=== PATIENT | female | born 1965 | race Caucasian/White ===

== ENCOUNTER 2016-09-20 11:13 | Emergency (ER) | payer OTHER ==
[~2016-09-20] VITALS: Ht 152.4 cm; Wt 56.5 kg
[2016-09-20 11:16] VITALS: BP 169/99; PULSE 89; RESP 16; TEMP 97.9; O2SAT 100
--- NOTE | 2016-09-20 11:20 | PD ---
HPI . Right anterior leg spider bite/infection for 3 days Chief Complaint: Bite or Sting Time Seen by Provider: 11:20 Travel History International Travel<30 days: No Contact w/Intl Traveler<30days: No Traveled to known affect area: No History of Present Illness HPI 50-year-old female with history of hypertension here with complaints of right anterior leg spider bite that has been there for about 3 days. Patient says she did not actually see the spider, but she has been bitten previously by spiders and had similar issues. She is now complaining of a right anterior leg wound that has been present for the past 3-4 days. Patient tells me that she's been taking someone else's Bactrim and it does not seem to be working. She says that the area popped and has been draining on its own. She's been using toilet paper as dressings. She denies any fever or chills. She is homeless. PFSH Past Medical History Hypertension: Yes ?: Not Social History Alcohol Use: No Tobacco Use: No Substance Use: No Allergies-Medications (Allergen,Severity, Reaction): Coded Allergies: No Known Allergies (Unverified , 09/20/16) Reported Meds & Prescriptions Reported Meds & Active Scripts Active Ibuprofen 800 Mg Tab 800 Mg PO TID Clindamycin (Clindamycin HCl) 300 Mg Cap 300 Mg PO TID Review of Systems General / Constitutional: No: Fever Eyes: No: Visual changes HENT: No: Headaches Cardiovascular: No: Chest Pain or Discomfort Respiratory: No: Shortness of Breath Gastrointestinal: No: Abdominal Pain Genitourinary: No: Dysuria Musculoskeletal: No: Pain Skin: Positive Other (anterior leg wound), No Rash Neurologic: No: Weakness Psychiatric: No: Depression Endocrine: No: Polydipsia Hematologic/Lymphatic: No: Easy Bruising Physical Exam Narrative GENERAL: AAO x 3, no acute distress, Well-nourished, well-developed patient. SKIN: Warm and dry. No visible rashes or bruising. distal anterior leg with open wound, no drainage present, + erythema and edema, warm to touch, area marked during examination HEAD: Normocephalic and atraumatic. EYES: No scleral icterus. No injection or drainage. ENT: No nasal drainage noted. Mucous membranes pink. Airway patent. NECK: Supple, trachea midline. No JVD. CARDIOVASCULAR: Regular rate and rhythm without murmurs, gallops, or rubs. RESPIRATORY: Breath sounds equal bilaterally. No accessory muscle use. No rhonchi or rales. GASTROINTESTINAL: visual inspection normal EXTREMITIES: No cyanosis> + 2+ edema of the distal right leg and foot. see skin : pedal pulses intact. all digits of the feet move normally, patient is ambulatory BACK: Nontender without obvious deformity. No CVA tenderness. PSYCH: AAO x 3, normal affect. Data Data Last Documented VS Vital Signs Date Time Temp Pulse Resp B/P Pulse Ox O2 Delivery O2 Flow Rate FiO2 09/20/16 11:16 97.9 89 16 169/99 100 Orders Wound Culture And Gram Stain (09/20/16 11:24) Wound Care (09/20/16 11:24) Clindamycin (Cleocin) (09/20/16 11:30) MDM Medical Decision Making Medical Screen Exam Complete: Yes Emergency Medical Condition: Yes Medical Record Reviewed: Yes Differential Diagnosis cellulitis, spider bite, less likely fracture, Narrative Course 50-year-old female with history of hypertension here with complaints of right anterior leg spider bite that has been there for about 3 days. Patient says she did not actually see the spider, but she has been bitten previously by spiders and had similar issues. She is now complaining of a right anterior leg wound that has been present for the past 3-4 days. Patient tells me that she's been taking someone else's Bactrim and it does not seem to be working. She says that the area popped and has been draining on its own. She's been using toilet paper as dressings. She denies any fever or chills. She is homeless. Patient seen and examined. She does have a cellulitis to her right distal leg. It is causing some pedal edema, but pulses are intact and it is very localized and superficial. We have taken a wound culture. Area was cleaned and sterile dressing applied. I have provided a dose of clindamycin in the ED. She has been instructed to start meds soon. Return in 2 days for a wound check. Discussed signs of worsening infection and when to return to ED earlier. Patient verbalized understanding of instructions, questions were answered, and thanked me for their care. I advised them if their condition worsens, please return to the nearest emergency room for further care. Diagnosis Primary Impression: Cellulitis Qualified Code: L03.115 - Cellulitis of right lower extremity Patient Instructions: Acute Wound Care (ED), Cellulitis (ED), General Instructions Additional Instructions: Please wash with soap and water daily. Change dressings daily. Take antibiotics as prescribed. Return to the emergency room in 2 days for a recheck. [place] for worsening signs of infection which include fever, increased redness , increased warmth, purulent drainage, increased swelling or streaking. If any of these develop, please go to the nearest emergency room. Scripts Ibuprofen 800 Mg [id number] Mg PO TID #21 TAB Prov:Marsha Kilgore DO 09/20/16 Clindamycin 300 Mg [id number] Mg PO TID #21 CAP Prov:Marsha Kilgore DO 09/20/16 Disposition: 01 DISCHARGE HOME Condition: Stable Lian Sylvester September 20, 2016 11:20
[2016-09-20] MEDS ORDERED: IBUP800T23 PO (11:27)
[2016-09-20] MEDS ORDERED: CLIN1CAP6 PO (11:27)
[2016-09-20] MEDS ORDERED: CLINDAMYCIN 150 MG CAP PO ONE (11:30)
== END 2016-09-20 11:48 | disposition home or self-care (01) ==
LOC: NEPK 11:13
DX: L03.115 Cellulitis of right lower limb (principal); I10 Essential (primary) hypertension; B95.1 Streptococcus, group B, as the cause of diseases classified elsewhere; B95.62 Methicillin resistant Staphylococcus aureus infection as the cause of diseases classified elsewhere; Z59.0 Homelessness; X58.XXXA Exposure to other specified factors, initial encounter
CPT/HCPCS: 86403; 87070; 87186; 99283

== ENCOUNTER 2018-02-13 09:43 | Inpatient (IN) ==
[2018-02-13] MEDS ORDERED: Acetaminophen 325 MG Tablet PO ONE (10:17)
[2018-02-13] MEDS ORDERED: Tetanus/Diphtheria Toxoid Adult Vaccine Inj 0.5 ML Vial IM ONE (10:25)
--- NOTE | 2018-02-13 10:25 | ED ---
HPI General Chief complaint: Skin/Abscess/Foreign Body Stated complaint: left hand pain Time Seen by Provider: 02/13/18 10:10 Source: patient Limitations: no limitations History of Present Illness HPI narrative: Pt here today for 2 days hx of L hand cellulitis with multiple circular wounds x 2 days s/p "[place]". dorsal surface of L hand with cellulitis and open oozing wound to base of L index and L middle finger. Also has circular wound to palmar surface of L pinky finger with cellulitis that is tracking up to antecubital region. There is another approx 1 cm circular lesion to base of RIGHT pinky finger as well that is approx 1 cm circular with some serous oozing. One more lesion to lateral aspect of L foot that is approx .5 cm circular. Denies IV drug use. (+) hx low plateltes, hepatitis c, and anemia. Tetanus is out of date. MD complaint: abscess/boil and lesion Onset (ago): day(s) Tetanus Immunization: >5 Years Location: L hand Severity: moderate Severity scale (1-10): 5 Related Data Home Medications Medication Instructions Recorded Confirmed duloxetine [Cymbalta] 60 mg PO DAILY 02/14/18 02/14/18 ferrous sulfate 325 mg PO BID 02/14/18 02/14/18 folic acid 1 mg PO DAILY 02/14/18 02/14/18 gabapentin [Neurontin] 300 mg PO BID 02/14/18 02/14/18 lisinopril 10 mg PO DAILY 02/14/18 02/14/18 omeprazole magnesium [Prilosec] 20 mg PO DAILY 02/14/18 02/14/18 pantoprazole [Protonix] 40 mg PO DAILY 02/14/18 02/14/18 trazodone 100 mg PO HS 02/14/18 02/14/18 Allergies Allergy/AdvReac Type Severity Reaction Status Date / Time *MDRO Multi-Drug Resistant AdvReac Unknown Uncoded 09/23/16 10:26 Organism Review of Systems ROS: all other systems reviewed are negative [facility] Medical History Medical History Alcohol abuse (Acute) Anemia (Acute) Bipolar 1 disorder (Acute) GERD (gastroesophageal reflux disease) (Acute) HTN (hypertension) (Acute) Hernia (Acute) IBS (irritable bowel syndrome) (Acute) Family History Family History Other Family history non-contributory Social History Social History Substance History: Past History 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 SKIN: Warm and dry. Area of swelling to base of L index and middle fingers that is hot to touch-cellulitis. Approximately 3-4 cm circular area of dorsal surface of L hand. Also palmar surface of L pinky with circular open wound. Areas are purplish in color with some whitish skin small open puncture-like areas to centers of lesions that are oozing serous fluid. Also palmar surface of L pinky that is tracking up to L antecubital region. One lesion to LEFT lateral foot similar description as above. HEAD: Normocephalic. ENT: No scleral icterus. No injection or drainage. NECK: Supple, trachea midline. No JVD or lymphadenopathy. CARDIOVASCULAR: Regular rate and rhythm without murmurs, gallops, or rubs. RESPIRATORY: Breath sounds equal bilaterally. No accessory muscle use. GASTROINTESTINAL: Abdomen soft, non-tender, nondistended. MUSCULOSKELETAL: No cyanosis, or edema. Pt able to open hand but too painful to completely open it. Strong handicapper harness racing, shei s able to make a fist without any difficulty. BACK: Nontender without obvious deformity. No CVA tenderness. Course Initial Documented Vital Signs Temperature 98.5 F 02/13/18 10:00 Pulse Rate 82 02/13/18 10:00 Respiratory Rate 19 02/13/18 10:00 Blood Pressure 148/86 H 02/13/18 10:00 Pulse Oximetry 99 02/13/18 10:00 Last Documented Vital Signs Temperature 97.6 F 02/14/18 15:40 Pulse Rate 74 02/14/18 15:40 Respiratory Rate 18 02/14/18 15:40 Blood Pressure 147/90 H 02/14/18 15:40 Pulse Oximetry 97 02/14/18 15:40 Medical Decision Making BETH Attestation BETH supervised visit: Yes Attestation: I, Dr. Kilgore, have reviewed the advance practice practitioner's documentation and am in agreement, met with the patient face to face, made the diagnosis, and the medical decision making was done by me. *My assessment and Findings: cellulitis vs. pustules vs. sepsis 52yo F with alcohol abuse here with c/o redness and pain in left hand for 2 days. Said she [place]. Said there was a lot of barnacles. +pustules that is draining purulent discharge on expression on dorsum of left hand. +Erythema and edema dorsum of 2nd and 3rd digit with streaking erythema up left forearm. Unable to fully extend 2nd and 3rd digit. There is another lesion on volar aspect of distal wrist with erythematous streaking up her forearm. Compartment is soft. Labs reviewed, leukocytosis at 13.3. H/H normal. Thrombocytopenia at 127,000 which pt said she has had. Lactic acid elevated at 3.0. Mild hyponatremia at 133. Mildly elevated liver enzymes likely secondary to alcohol abuse. Pt said she had fever today. Since the infection is rapidly progressing and pt has elevated leukocyte and lactic acid, will admit for IV antibiotics. Wound cultures were sent. Pt given vancomycin and doxycylcine to cover Vibrio species. MDM Narrative Medical decision making narrative: Painful, swollen wound to dorsal surface of L hand-see Exam section for description. She is able to open her hand but not all the way, she has ability to make a fist on L hand as well. Lesions to lateral aspect of L foot and R palmar pinky area. She denies Iv drug use, but I suspect otherwise. Labwork ordered with lactic acid and blood cultures, will give Tylenol for pain, wound culture ordered. L hand XR ordered as well. Medical Screen Exam Complete: Yes Emergency Medical Condition: Yes Differential Diagnosis Differential Diagnosis: Cellulitis, IV drug use/abscess Lab Data Result diagrams: 02/14/18 08:20 02/14/18 08:20 Lab Results 02/13/18 02/13/18 02/13/18 Range/Units 10:50 10:50 10:55 WBC 13.3 H (4.0-11.0) th/mm3 RBC 4.67 (4.00-5.30) mil/mm3 Hgb 14.0 (11.6-15.3) gm/dL Hct 41.3 (35.0-46.0) % MCV 88.4 (80.0-100.0) fL MCH 30.0 (27.0-34.0) pg MCHC 34.0 (32.0-36.0) % RDW 14.4 (11.6-17.2) % Plt Count 127 L (150-450) th/mm3 MPV 7.9 (7.0-11.0) fL Neut % (Auto) 89.7 H (16.0-70.0) % Lymph % (Auto) 5.6 L (9.0-44.0) % [place] % (Auto) 4.3 (0.0-8.0) % Eos % (Auto) 0.1 (0.0-4.0) % Baso % (Auto) 0.3 (0.0-2.0) % Neut # (Auto) 11.9 H (1.8-7.7) th/mm3 Lymph # (Auto) 0.7 L (1.0-4.8) th/mm3 [place] # (Auto) 0.6 (0.0-0.9) th/mm3 Eos # (Auto) 0.0 (0.0-0.4) th/mm3 Baso # (Auto) 0.0 (0.0-0.2) th/mm3 WBC Differential . Differential Comment Auto diff final Sodium 133 L (136-145) meq/L Potassium 4.0 (3.5-5.1) meq/L Chloride 97 L (98-107) meq/L Carbon Dioxide 19.7 L (21.0-32.0) meq/L Anion Gap 16 H (5-15) meq/L BUN 9 (7-18) mg/dL Creatinine 0.83 (0.50-1.00) mg/dL Estimated GFR 73 L (>89) mL/min Random Glucose 73 L (74-106) mg/dL Lactic Acid 3.0 H (0.4-2.0) mmol/L Calcium 9.6 (8.5-10.1) mg/dL Total Bilirubin 1.2 H (0.2-1.0) mg/dL AST 65 H (15-37) U/L ALT 65 H (10-53) U/L Alkaline Phosphatase 143 H (45-117) U/L Total Protein 9.5 H (6.4-8.2) g/dL Albumin 4.5 (3.4-5.0) g/dL 02/14/18 02/14/18 Range/Units 08:20 08:20 WBC 6.2 D (4.0-11.0) th/mm3 RBC 4.11 (4.00-5.30) mil/mm3 Hgb 12.2 (11.6-15.3) gm/dL Hct 36.7 (35.0-46.0) % MCV 89.1 (80.0-100.0) fL MCH 29.7 (27.0-34.0) pg MCHC 33.3 (32.0-36.0) % RDW 14.4 (11.6-17.2) % Plt Count 89 L (150-450) th/mm3 MPV 8.7 (7.0-11.0) fL Neut % (Auto) (16.0-70.0) % Lymph % (Auto) (9.0-44.0) % [place] % (Auto) (0.0-8.0) % Eos % (Auto) (0.0-4.0) % Baso % (Auto) (0.0-2.0) % Neut # (Auto) (1.8-7.7) th/mm3 Lymph # (Auto) (1.0-4.8) th/mm3 [place] # (Auto) (0.0-0.9) th/mm3 Eos # (Auto) (0.0-0.4) th/mm3 Baso # (Auto) (0.0-0.2) th/mm3 WBC Differential Differential Comment Sodium 137 (136-145) meq/L Potassium 3.6 (3.5-5.1) meq/L Chloride 104 (98-107) meq/L Carbon Dioxide 22.5 (21.0-32.0) meq/L Anion Gap 11 (5-15) meq/L BUN 6 L (7-18) mg/dL Creatinine 0.63 (0.50-1.00) mg/dL Estimated GFR Greater than 89 (>89) mL/min Random Glucose 118 H (74-106) mg/dL Lactic Acid (0.4-2.0) mmol/L Calcium 8.5 D (8.5-10.1) mg/dL Total Bilirubin (0.2-1.0) mg/dL AST (15-37) U/L ALT (10-53) U/L Alkaline Phosphatase (45-117) U/L Total Protein (6.4-8.2) g/dL Albumin (3.4-5.0) g/dL Imaging Data Radiologist's impression: Hand X-Ray 02/13/18 10:35 CONCLUSION: Mild degenerative changes, negative for fracture Generalized soft tissue swelling Discharge Plan Discharge Disposition Patient Disposition: 30 Still Patient Discharge Details Diagnosis: Cellulitis Physicians Team ED Provider: Marsha Kilgore ED Midlevel Provider: Agata Patrick Primary Care Provider: Primary Care Kaela Castro Attending Provider: Champ Freeman Status ED Status: Left Department Discharge Information Discharge Date/Time: 02/13/18 13:30
[2018-02-13 11:10] LABS: Baso % (Auto) 0.3 % (0.0-2.0); Eos % (Auto) 0.1 % (0.0-4.0); Hematocrit 41.3 % (35.0-46.0); Lymph # (Auto) 0.7 th/mm3 (1.0-4.8); Lymph % (Auto) 5.6 % (9.0-44.0); Mean Corpuscular Volume 88.4 fL (80.0-100.0); Mean Platelet Volume 7.9 fL (7.0-11.0); Mono # (Auto) 0.6 th/mm3 (0.0-0.9); Mono % (Auto) 4.3 % (0.0-8.0); Neut # (Auto) 11.9 th/mm3 (1.8-7.7); Neut % (Auto) 89.7 % (16.0-70.0); Platelet Count 127 th/mm3 (150-450); Red Blood Count 4.67 mil/mm3 (4.00-5.30); Red Cell Distribution Width 14.4 % (11.6-17.2); White Blood Count 13.3 th/mm3 (4.0-11.0)
[2018-02-13] MEDS: Sod Chloride 0.9% Inj 1,000 ML IV.CONT SCH ×4 (11:10→22:49)
[2018-02-13 11:26] LABS: Albumin 4.5 g/dL (3.4-5.0); Anion Gap 16 meq/L (5-15); Aspartate Aminotransferase 65 U/L (15-37); Blood Urea Nitrogen 9 mg/dL (7-18); Calcium 9.6 mg/dL (8.5-10.1); Carbon Dioxide 19.7 meq/L (21.0-32.0); Chloride 97 meq/L (98-107); Glomerular Filtration Rate 73 mL/min (>89); Glucose,Random 73 mg/dL (74-106); Sodium 133 meq/L (136-145)
[2018-02-13 11:30] LABS: Alanine Aminotransferase 65 U/L (10-53); Alkaline Phosphatase 143 U/L (45-117); Total Protein 9.5 g/dL (6.4-8.2)
--- NOTE | 2018-02-13 11:45 | XR ---
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 Patient reports that signs and symptoms have been present for 2 days and indicates a pain score of 10/10. MEDICAL/SURGICAL HISTORY: Anemia. ETOH abuse None. COMPARISON: No prior exams available for comparison. FINDINGS: Bony structures are intact and in normal alignment. Minimal degenerative changes base of the first me tacarpal. Osseous density is normal. Generalized soft tissue swelling. No radiopaque foreign bodies seen. CONCLUSION: Mild degenerative changes, negative for fracture Generalized soft tissue swelling Electronically signed by: Abdon Meade MD 02/13/2018 11:43 AM EDT
[2018-02-13] MEDS ORDERED: Sod Chloride 0.9% Inj 1,000 ML IV.SIG SCH (12:00)
[2018-02-13] MEDS ORDERED: Vancomycin Inj 1 GM/200 ML PIGGYBACK IV.SIG SCH (12:00)
[2018-02-13] MEDS ORDERED: Bisacodyl 10 MG Supp RECTAL PRN (12:39)
[2018-02-13] MEDS: Sodium Chlor 0.9% Inj 100 ML IV.SIG SCH ×2 (13:00→15:54)
--- NOTE | 2018-02-13 13:14 | P.HPIM ---
History of Present Illness Service: [facility] hospitalist Primary Care Physician: No Primary Care Physician Chief Complaint: Left hand infection History of Present Illness: 52-year-old female with a medical history significant for hypertension, alcohol dependence, hepatitis C who went [place] for unknown reason about 2 days ago. The patient reports there was a lot of barnacles and that she was not aware she caught herself. She presented to the emergency room today with rapidly progressive pustules involving the left hand, left forearm, left heel. She reported subjective fevers. There is some swelling of the left hand but she is able to move her fingers freely. Review of Systems All other systems reviewed negative except as stated in HPI PMFSH - History History Provided By: Patient - Medical History Medical History: Medical History (Last Updated 02/13/18 @ 12:52 by Chepe William MD) Alcohol abuse Anemia Bipolar 1 disorder GERD (gastroesophageal reflux disease) HTN (hypertension) Hernia IBS (irritable bowel syndrome) - Surgical History Surgical History: Surgical History (Last Reviewed 02/13/18 @ 12:52 by Chepe William MD) Previous section - Family History Family History: Family History (Last Updated 02/13/18 @ 12:52 by Chepe William MD) Other Family history non-contributory - Social History I have reviewed the patient's Social History: Yes - Tobacco History Smoking Status: Never smoker - Alcohol History How Often Do You Have a Drink Containing Alcohol: 4 or more times a week - Substance Use History Substance History: No History of Abuse - Travel History Recent Travel Out of the Country Within the Last 8 Weeks: No - Immunization History Tetanus Immunization: >5 Years Medications and Allergies Active Medications: Active Medications Acetaminophen (Tylenol) 650 mg PO Q4H PRN PRN Reason: PAIN 1-10 AND/OR FEVER >101F Al Hydroxide/Mg Hydroxide (Milk Of Magnesia Liq) 30 ml PO Q12H PRN PRN Reason: Mild Constipation Bisacodyl (Dulcolax Supp) 10 mg RECTAL DAILY PRN PRN Reason: SEVERE CONSITIPATION Doxycycline Hyclate (Vibramycin) 100 mg PO Q12HR FLAQUITO Sodium Chloride (Ns Inj) 1,000 mls @ 125 mls/hr IV.CONT .Q8H [facility] Last Admin: 02/13/18 11:10 Dose: 125 mls/hr Sodium Chloride (Ns Inj) 1,000 mls @ 0 mls/hr IV.SIG BOLUS FLAQUITO Vancomycin/Sodium Chloride (Vancomycin Inj) 1 gm in 200 mls @ 200 mls/hr IV.SIG AGRICULTURE LABORATORY TECHNICIAN [facility] Clindamycin/Sodium Chloride (Cleocin 600 Mg/Ns Premix) 600 mg in 50 mls @ 100 mls/hr IV.SIG Q8H FLAQUITO Stop: 02/14/18 05:14 Lactulose (Lactulose Liq) 30 ml PO DAILY PRN PRN Reason: SEVERE CONSITIPATION Levofloxacin (Levaquin) 750 mg PO DAILY [facility] Sennosides (Senokot) 17.2 mg PO Q12H PRN PRN Reason: Moderate Constipation Sodium Chloride (Ns Flush) 2 ml IV.FLUSH PRN PRN PRN Reason: FLUSH AFTER USING IV ACCESS Allergies Allergy/AdvReac Type Severity Reaction Status Date / Time *MDRO Multi-Drug Resistant AdvReac Unknown Uncoded 09/23/16 10:26 Organism Home Medications Medication Instructions Recorded Confirmed Type No Known Home Medications 02/13/18 02/13/18 History Exam Vital signs: Vital Signs 02/13/18 10:00 Temperature 98.5 F Pulse Rate 82 Respiratory Rate 19 Blood Pressure 148/86 H Pulse Oximetry 99 Intake & Output 02/12/18 02/13/18 02/13/18 18:59 06:59 18:59 Weight 61.235 kg Narrative: GENERAL: This is a well-nourished, well-developed patient, in no apparent distress. SKIN: On the dorsal aspect of the left hand, there are a few areas of pustules, some of them draining serous fluid. There is another pustule on the left forearm with surrounding erythema and the lateral side of the left heel there is fresh laceration. CARDIOVASCULAR: Normal rate and regular rhythm without murmurs, gallops, or rubs. RESPIRATORY: Good respiratory efforts. Breath sounds equal and clear to auscultation bilaterally. GASTROINTESTINAL: Abdomen soft, non-tender, non-distended. Normal active bowel sounds MUSCULOSKELETAL: Extremities without cyanosis, or edema. NEURO: Alert & Oriented x4 to person, place, time, situation. Moves all ext x4 PSYCH: Appropriate mood and affect. Results - Labs CBC & Chem 7: 02/13/18 10:50 02/13/18 10:50 Labs: Short CBC 02/13/18 Range/Units 10:50 WBC 13.3 H (4.0-11.0) th/mm3 Hgb 14.0 (11.6-15.3) gm/dL Hct 41.3 (35.0-46.0) % Plt Count 127 L (150-450) th/mm3 BMP 02/13/18 10:50 Sodium 133 L Potassium 4.0 Chloride 97 L Carbon Dioxide 19.7 L BUN 9 Creatinine 0.83 Calcium 9.6 Liver Function 02/13/18 Range/Units 10:50 Total Bilirubin 1.2 H (0.2-1.0) mg/dL AST 65 H (15-37) U/L ALT 65 H (10-53) U/L Alkaline Phosphatase 143 H (45-117) U/L Albumin 4.5 (3.4-5.0) g/dL - Imaging Impressions Hand X-Ray 02/13/18 10:35 CONCLUSION: Mild degenerative changes, negative for fracture Generalized soft tissue swelling Caprini VTE Risk Assessment Caprini VTE Risk Assessment: No/Low Risk (score <= 1) Caprini Risk Assessment Model: Point Value = 1 Point Value = 2 Point Value = 3 Point Value = 5 Age 41-60 Minor surgery BMI > 25 kg/m2 Swollen legs Varicose veins or History of unexplained or recurrent spontaneous Oral contraceptives or hormone replacement Sepsis (< 1 month) Serious lung disease, including pneumonia (< 1 month) Abnormal pulmonary function Acute myocardial infarction Congestive heart failure (< 1 month) History of inflammatory bowel disease Medical patient at bed rest Age 61-74 Arthroscopic surgery Major open surgery (> 45 min) Laparoscopic surgery (> 45 min) Malignancy Confined to bed (> 72 hours) Immobilizing plaster cast Central venous access Age >= 75 History of VTE Family history of VTE Factor V Leiden Prothrombin [id number] Lupus anticoagulant Anticardiolipin antibodies Elevated serum homocysteine Heparin-induced thrombocytopenia Other congenital or acquired thrombophilia Stroke (< 1 month) Elective arthroplasty Hip, pelvis, or leg fracture Acute spinal cord injury (< 1 month) Prophylaxis Regimen: Total Risk Factor Score Risk Level Prophylaxis Regimen 0-1 Low Early ambulation 2 Moderate Order ONE of the following: *Sequential Compression Device (SCD) *Heparin 5000 units SQ BID 3-4 Higher Order ONE of the following medications: *Heparin 5000 units SQ TID *Enoxaparin/Lovenox 40 mg SQ daily (WT < 150 kg, CrCl > 30 mL/min) *Enoxaparin/Lovenox 30 mg SQ daily (WT < 150 kg, CrCl > 10-29 mL/min) *Enoxaparin/Lovenox 30 mg SQ BID (WT < 150 kg, CrCl > 30 mL/min) AND/OR *Sequential Compression Device (SCD) 5 or more Highest Order ONE of the following medications: *Heparin 5000 units SQ TID (Preferred with Epidurals) *Enoxaparin/Lovenox 40 mg SQ daily (WT < 150 kg, CrCl > 30 mL/min) *Enoxaparin/Lovenox 30 mg SQ daily (WT < 150 kg, CrCl > 10-29 mL/min) *Enoxaparin/Lovenox 30 mg SQ BID (WT < 150 kg, CrCl > 30 mL/min) AND *Sequential Compression Device (SCD) Assessment and Plan - Plan 52-year-old female with: Left hand/forearm cellulitis: Patient sustained presumable lacerations from swimming [place] couple of [place]. Seawater exposure. Rapidly progressing symptoms. -Antibiotics received in the emergency room include vancomycin, Rocephin, and doxycycline - We will continue antibiotics with Levaquin, clindamycin, and doxycycline in anticipation for transition to oral antibiotics hopefully by tomorrow. - Expect improvement, if worsening would consult ID. Serial exam of the hand. Infection appear to involve soft tissue only at this time. Hypertension: - Resume home dose lisinopril 20 mg daily Alcohol abuse: - Patient counseled on cessation. Hyponatremia/mild anion gap/lactic acidosis: - I expect this to be corrected quickly with IV hydration. -Follow-up labs in a.m. Elevated LFTs: - Secondary to continuous alcohol use. - Patient counseled on cessation GI prophylaxis: Stool softener PRN constipation. DVT PPx: Patient is ambulatory.
[2018-02-13] MEDS: Lisinopril 10 MG Tablet PO SCH (15:28)
[2018-02-13] MEDS: Acetaminophen 325 MG Tablet PO PRN ×2 (15:29→21:37)
[2018-02-13] MEDS: Clindamycin 600 mg/NS Premix 600 MG/50 ML PIGGYBACK IV.SIG SCH ×2 (15:55→22:49)
[2018-02-14] MEDS: Sod Chloride 0.9% Inj 1,000 ML IV.CONT SCH ×5 (02:27→21:30)
[2018-02-14] MEDS: Acetaminophen 325 MG Tablet PO PRN (05:59)
[2018-02-14] MEDS: Clindamycin 600 mg/NS Premix 600 MG/50 ML PIGGYBACK IV.SIG SCH (06:00)
[2018-02-14] MEDS ORDERED: levoFLOXacin 750 MG Tablet PO SCH (09:00)
[2018-02-14 09:06] LABS: Hematocrit 36.7 % (35.0-46.0); Hemoglobin 12.2 gm/dL (11.6-15.3); Mean Corpuscular HGB Conc 33.3 % (32.0-36.0); Mean Corpuscular Hemoglobin 29.7 pg (27.0-34.0); Mean Corpuscular Volume 89.1 fL (80.0-100.0); Mean Platelet Volume 8.7 fL (7.0-11.0); Platelet Count 89 th/mm3 (150-450); Red Blood Count 4.11 mil/mm3 (4.00-5.30); Red Cell Distribution Width 14.4 % (11.6-17.2); White Blood Count 6.2 th/mm3 (4.0-11.0)
[2018-02-14] MEDS: Lisinopril 10 MG Tablet PO SCH (09:42)
[2018-02-14] MEDS: Gabapentin 300 MG Capsule PO SCH ×2 (09:42→21:29)
[2018-02-14] MEDS: Duloxetine 60 MG DR Capsule PO SCH (09:42)
[2018-02-14 09:46] LABS: Anion Gap 11 meq/L (5-15); Blood Urea Nitrogen 6 mg/dL (7-18); Calcium 8.5 mg/dL (8.5-10.1); Carbon Dioxide 22.5 meq/L (21.0-32.0); Chloride 104 meq/L (98-107); Glomerular Filtration Rate Greater Than 89 mL/min (>89); Glucose,Random 118 mg/dL (74-106); Potassium 3.6 meq/L (3.5-5.1); Sodium 137 meq/L (136-145)
--- NOTE | 2018-02-14 10:17 | P.PN ---
Subjective Interval history: Follow-up for left hand/forearm and left cellulitis s/p injury from barnacles in [facility]. Patient reports mild improvement of her left hand swelling overnight, however still erythematous with purulent drainage from wounds. She is still unable to make a closed fist with the left hand. RN at bedside does report mild improvement compared to yesterday. Denies fevers/chills. She is reporting occasional nausea with an episode of vomiting today. Denies abdominal pain. She is requesting her home medications be restarted. Denies any other medical complaints at this time. Physical Exam Vital signs: Vital Signs 02/13/18 16:00 02/13/18 20:00 02/14/18 00:00 Temperature 98.3 F 98.1 F 98.2 F Pulse Rate 79 87 72 Respiratory Rate 12 16 16 Blood Pressure 132/84 140/91 H 114/70 Pulse Oximetry 100 98 100 02/14/18 04:00 02/14/18 07:15 Temperature 98.5 F 98.5 F Pulse Rate 71 72 Respiratory Rate 16 18 Blood Pressure 128/79 141/87 H Pulse Oximetry 99 98 Intake & Output 02/13/18 02/14/18 02/14/18 18:59 06:59 18:59 Intake Total 1250 / 1250 2100 / 2100 Balance 1250 / 1250 2100 / 2100 Weight 61.235 kg 61.235 kg Intake: IV 1250 / 1250 2100 / 2100 NS Inj 1,000 ML @ 125 mls/hr IV 1000 / 1000 2000 / 2000 .CONT .Q8H FLAQUITO Rx#:[id number] Cleocin 600 mg/NS Premix 600 mg 50 / 50 100 / 100 In 50 ml @ 100 mls/hr IV.SIG Q8H FLAQUITO Rx#:[id number] NS Inj 100 ML @ 75 mls/hr IV. 100 / 100 SIG ONCE FLAQUITO Rx#:[id number] Rocephin Inj 1,000 MG In NS Inj 100 / 100 100 ML @ 200 mls/hr IV.SIG ONCE ONE Rx#:[id number] Other: # Voids 2 Date of Last Bowel Movement 02/13/18 Weight On Admission 61.235 kg Narrative: GENERAL: Well-nourished, well-developed middle aged female patient in [facility]. SKIN: Warm and dry. Left dorsal hand with multiple pustules with mixture of serous and purulent drainage, diffuse edema throughout entire dorsal hand, few pustules on the forearm without drainage, and superficial laceration without drainage at left lateral heel with mild surrounding erythema. HEENT: Normocephalic. Atraumatic. Pupils equal and round. Mucous membranes pink and moist. NECK: Supple. Trachea midline. CARDIOVASCULAR: Regular rate and rhythm. No murmur appreciated. RESPIRATORY: No accessory muscle use. Clear to auscultation. Breath sounds equal bilaterally. GASTROINTESTINAL: Abdomen soft, non-tender, nondistended. Normoactive bowel sounds x4. MUSCULOSKELETAL: No obvious deformities. Extremities without clubbing, cyanosis , or edema. Unable to make closed fist with left hand due to diffuse edema. NEUROLOGICAL: Awake and alert. No obvious cranial nerve deficits. Motor grossly within normal limits. Moving all extremities spontaneously. Normal speech. PSYCHIATRIC: Appropriate mood and affect; insight and judgment normal. Results - Labs CBC & Chem 7: 02/14/18 08:20 02/14/18 08:20 Laboratory Results - last 24 hr 02/13/18 02/13/18 02/13/18 10:50 10:50 10:55 WBC 13.3 H RBC 4.67 Hgb 14.0 Hct 41.3 MCV 88.4 MCH 30.0 MCHC 34.0 RDW 14.4 Plt Count 127 L MPV 7.9 Neut % (Auto) 89.7 H Lymph % (Auto) 5.6 L [place] % (Auto) 4.3 Eos % (Auto) 0.1 Baso % (Auto) 0.3 Neut # (Auto) 11.9 H Lymph # (Auto) 0.7 L [place] # (Auto) 0.6 Eos # (Auto) 0.0 Baso # (Auto) 0.0 WBC Differential . Differential Comment Auto diff final Sodium 133 L Potassium 4.0 Chloride 97 L Carbon Dioxide 19.7 L Anion Gap 16 H BUN 9 Creatinine 0.83 Estimated GFR 73 L Random Glucose 73 L Lactic Acid 3.0 H Calcium 9.6 Total Bilirubin 1.2 H AST 65 H ALT 65 H Alkaline Phosphatase 143 H Total Protein 9.5 H Albumin 4.5 02/14/18 02/14/18 08:20 08:20 WBC 6.2 D RBC 4.11 Hgb 12.2 Hct 36.7 MCV 89.1 MCH 29.7 MCHC 33.3 RDW 14.4 Plt Count 89 L MPV 8.7 Neut % (Auto) Lymph % (Auto) [place] % (Auto) Eos % (Auto) Baso % (Auto) Neut # (Auto) Lymph # (Auto) [place] # (Auto) Eos # (Auto) Baso # (Auto) WBC Differential Differential Comment Sodium 137 Potassium 3.6 Chloride 104 Carbon Dioxide 22.5 Anion Gap 11 BUN 6 L Creatinine 0.63 Estimated GFR Greater than 89 Random Glucose 118 H Lactic Acid Calcium 8.5 D Total Bilirubin AST ALT Alkaline Phosphatase Total Protein Albumin Microbiology 02/13/18 10:50 Abscess - Hand Gram Stain - Final - Imaging Impressions Hand X-Ray 02/13/18 10:35 CONCLUSION: Mild degenerative changes, negative for fracture Generalized soft tissue swelling Assessment and Plan - Plan 52-year-old female with a medical history significant for hypertension, alcohol dependence, hepatitis C who went swimming in the [place] for unknown reason about 2 days ago. Left hand/forearm cellulitis: Patient sustained multiple lacerations from swimming in the [place] a couple of days ago. Saltwater exposure. Rapidly progressing symptoms. -Left hand xray with generalized soft tissue swelling -Antibiotics received in the emergency room include vancomycin, Rocephin, and doxycycline -Preliminary wound culture with group A strep -Continue antibiotics with keflex po and doxycycline po for vibrio coverage -Elevate LUE with IV pole/sling -Symptoms improving, continue to monitor Hypertension: chronic, fairly well controlled currently -Resume home lisinopril 10mg daily (patient reports she has been on 20mg in the past - will monitor BP, increase dose as needed) Alcohol abuse: -Patient counseled on cessation. Hyponatremia/mild anion gap/lactic acidosis: suspect secondary to acute infection -given IVF hydration -Follow-up labs in a.m. Mildly Elevated LFTs: -Suspect secondary to continuous alcohol use. -Patient counseled on cessation GI prophylaxis: Stool softener PRN constipation. DVT PPx: Patient is ambulatory. Discharge Planning: Discharge pending further clinical improvement, likely requires additional 1-2 days of antibiotics and monitoring for improvement.
[2018-02-14] MEDS: Folic Acid 1 MG Tablet PO SCH (12:14)
[2018-02-14] MEDS: Ferrous Sulfate 325 MG Tablet PO SCH ×2 (12:14→21:29)
[2018-02-14] MEDS ORDERED: Clindamycin 600 mg/NS Premix 600 MG/50 ML PIGGYBACK IV.SIG SCH (16:00)
[2018-02-14] MEDS: Lactobacillus Acidophilus/L. Spores Tablet PO SCH (17:02)
[2018-02-14] MEDS ORDERED: traZODone 100 MG Tablet PO SCH (21:00)
[2018-02-15] MEDS: Sod Chloride 0.9% Inj 1,000 ML IV.CONT SCH ×3 (02:33→12:06)
[2018-02-15] MEDS: Lisinopril 10 MG Tablet PO SCH (09:52)
[2018-02-15] MEDS: Duloxetine 60 MG DR Capsule PO SCH (09:52)
[2018-02-15] MEDS: Lactobacillus Acidophilus/L. Spores Tablet PO SCH (09:52)
[2018-02-15] MEDS: Folic Acid 1 MG Tablet PO SCH (09:52)
[2018-02-15] MEDS: Gabapentin 300 MG Capsule PO SCH (09:52)
[2018-02-15] MEDS: Ferrous Sulfate 325 MG Tablet PO SCH (09:52)
[2018-02-15 12:36] VITALS: BP 124/78; PULSE 70; RESP 16; TEMP 97.8; O2SAT 98
--- NOTE | 2018-02-15 14:00 | P.PN ---
Subjective Interval history: Follow-up for left hand/forearm cellulitis. Patient was seen around 10 AM this morning. Patient reports significant improvement of her left hand erythema/ edema overnight. She denies any further fevers or chills. Wounds with minimal serous drainage overnight. Denies any new lesions or areas of erythema. Denies any chest pain or shortness of breath. She feels ready for discharge. She is requesting refills of all of her medications until she can see a new primary care provider. Physical Exam Vital signs: Vital Signs 02/14/18 15:40 02/15/18 00:00 02/15/18 04:00 Temperature 97.6 F 98.1 F 97.7 F Pulse Rate 74 68 65 Respiratory Rate 18 16 16 Blood Pressure 147/90 H 109/64 102/66 Pulse Oximetry 97 99 98 02/15/18 08:00 02/15/18 12:00 Temperature 98.0 F 97.8 F Pulse Rate 77 70 Respiratory Rate 20 16 Blood Pressure 136/74 124/78 Pulse Oximetry 100 98 Intake & Output 02/14/18 02/15/18 02/15/18 18:59 06:59 18:59 Intake Total 700 / 700 1300 / 1300 Balance 700 / 700 1300 / 1300 Weight 61.235 kg Intake: IV 700 / 700 1300 / 1300 NS Inj 1,000 ML @ 125 mls/hr IV 700 / 700 1300 / 1300 .CONT .Q8H FLAQUITO Rx#:[id number] Other: # Voids 2 Date of Last Bowel Movement 02/14/18 03/17/18 03/17/18 # Bowel Movements 3 Narrative: GENERAL: Well-nourished, well-developed middle aged female patient in [facility]. SKIN: Warm and dry. Left dorsal hand with multiple open wounds with minimal serous drainage today, edema significantly improved, few open pustules on the forearm healing without drainage, and superficial laceration without drainage at left lateral heel. Overall wounds much improved compared to yesterday. HEENT: Normocephalic. Atraumatic. Pupils equal and round. Mucous membranes pink and moist. CARDIOVASCULAR: Regular rate and rhythm. No murmur appreciated. RESPIRATORY: No accessory muscle use. Clear to auscultation. Breath sounds equal bilaterally. GASTROINTESTINAL: Abdomen soft, non-tender, nondistended. Normoactive bowel sounds x4. MUSCULOSKELETAL: No obvious deformities. Able to make fist with left hand today , much improved. NEUROLOGICAL: Awake and alert. No obvious cranial nerve deficits. Motor grossly within normal limits. Moving all extremities spontaneously. Normal speech. PSYCHIATRIC: Appropriate mood and affect; insight and judgment normal. Results - Labs CBC & Chem 7: 02/14/18 08:20 02/14/18 08:20 Laboratory Results - last 24 hr 02/14/18 16:02 Stl C.difficile DNA Amp Negative St C. diff Tox Epid 027 Negative Microbiology 02/13/18 10:50 Blood - Peripheral Aerobic Blood Culture - Preliminary No growth in 2 days 02/13/18 10:50 Blood - Peripheral Anaerobic Blood Culture - Preliminary No growth in 2 days 02/13/18 10:50 Blood - Peripheral Aerobic Blood Culture - Preliminary No growth in 2 days 02/13/18 10:50 Blood - Peripheral Anaerobic Blood Culture - Preliminary No growth in 2 days 02/13/18 10:50 Abscess - Hand Gram Stain - Final 02/13/18 10:50 Abscess - Hand Wound Culture - Preliminary Group A beta Strep Staphylococcus aureus - Imaging Hand X-Ray 02/13/18 10:35 CONCLUSION: Mild degenerative changes, negative for fracture Generalized soft tissue swelling Assessment and Plan - Plan 52-year-old female with a medical history significant for hypertension, alcohol dependence, hepatitis C who went swimming in the [employer] for unknown reason about 2 days ago. Left hand/forearm cellulitis: Patient sustained multiple lacerations from swimming in the [employer] a couple of days ago. Saltwater exposure. Rapidly progressing symptoms. -Left hand xray with generalized soft tissue swelling -Antibiotics received in the emergency room include vancomycin, Rocephin, and doxycycline -Preliminary wound culture with group A strep and staphylococcus aureus -Continue antibiotics with keflex po and doxycycline po for vibrio coverage -Elevate LUE with IV pole/sling -Symptoms significantly improved, stable for discharge, given Rx for keflex/ doxy [id number] Hypertension: chronic, fairly well controlled currently -Resumed home lisinopril 10mg daily -BP well controlled Alcohol abuse: -Patient counseled on cessation. Hyponatremia/mild anion gap/lactic acidosis: suspect secondary to acute infection -given IVF hydration -Repeat labs show improvement with Na 137, closed anion gap Mildly Elevated LFTs: -Suspect secondary to continuous alcohol use. -Patient counseled on cessation GI prophylaxis: Stool softener PRN constipation. DVT PPx: Patient is ambulatory. Discharge Planning: Discharge patient to home Condition on discharge: Stable Heart Healthy Diet as tolerated Ad [employer] activity Rx written: Keflex 500mg po q6h [id number], doxycycline 100mg po bid [id number], lactinex tid [id number], refilled cymbalta, ferrous sulfate, folic acid, gabapentin , lisinopril, protonix Follow-up with primary care physician at [facility]
== END 2018-02-15 14:58 | disposition home or self-care (01) ==
LOC: NEPD 09:43 → NEDA 09:43 → NEPHCDU 13:18
PROVIDERS: ADMIT Hospitalist; ATTEND Hospitalist